=== PATIENT | male | born 1960 | race Caucasian/White ===

== ENCOUNTER 2019-08-12 12:25 | Inpatient (IN) | payer OTHER ==
[2019-08-12 14:28] VITALS: BMI 23.6
--- NOTE | 2019-08-12 15:46 | HP ---
CIWA Score Nausea/Vomitin Muscle Tremors: 3 Anxiety: 3 Agitation: 3 Paroxysmal Sweats: 1-Minimal Palms Moist Orientation: 0-Oriented Tacttile Disturbances: 1-Very Mild Itch/Numbness Auditory Disturbances: 0-None Visual Disturbances: 0-None Headache: 2-Mild CIWA-Ar Total Score: 15 - Admission Criteria OASAS Guidelines: Admission for Medically Managed Detox: Requires at least one of the followin. CIWA greater than 12 2. Seizures within the past 24 hours 3. Delirium tremens within the past 24 hours 4. Hallucinations within the past 24 hours 5. Acute intervention needed for co occurring medical disorder 6. Acute intervention needed for co occurring psychiatric disorder 7. Severe withdrawal that cannot be handled at a lower level of care (continued vomiting, continued diarrhea, abnormal vital signs) requiring intravenous medication and/or fluids 8. 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,on remission perforate appendicitis 2007 fx of right ankle in 1994 intestinal obstruction 2016 - Smoking History Smoking history: Current every day smoker Have you smoked in the past 12 months: Yes Aproximately how many cigarettes per day: 20 - Alcohol/Substance Use Hx Alcohol Use: Yes History of Substance Use: reports: None - Social History Usual Living Arrangement: Yes: With Child ADL: Support Services Occupation: unemployed Admission [facility] Chief Complaint: need help to stop drinking alcohol Allergies/Adverse Reactions: Allergies Allergy/AdvReac Type Severity Reaction Status Date / Time Penicillins Allergy Severe Difficulty Verified 08/12/19 14:19 Breathing History of Present Illness: this 59 years old male with alcohol dependence,seeking help,last detox 04/22 [facility] had seizure last syncope alcohol related multiple medical problem 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 Loss EENT: reports: Nose Congestion Respiratory: reports: No Symptoms reported Cardiac: reports: No Symptoms Reported GI: reports: Nausea, Poor Appetite, Abdominal cramping : reports: No Symptoms Reported Musculoskeletal: reports: Back Pain, Muscle Pain Integumentary: reports: Dryness Neuro: reports: Headache, Tremors Endocrine: reports: No Symptoms Reported Hematology: reports: No Symptoms Reported Psychiatric: reports: No Sypmtoms Reported, Judgement Intact, Mood/Affect Appropiate, Orientated x3, Agitated, Depressed, other (bipolar disoder, depression,ptsd) Patient History - Patient Medical History Hx Anemia: No Hx Asthma: No Hx Chronic Obstructive Pulmonary Disease (COPD): No Hx Cancer: No Hx Cardiac Disorders: No Hx Congestive Heart Failure: No Hx Hypertension: No Hx Hypercholesterolemia: No Hx Pacemaker: No HX Cerebrovascular Accident: No Hx Seizures: Yes (last 06/23) Hx Dementia: No Hx Diabetes: No Hx Gastrointestinal Disorders: Yes (intestinal obstruction sugery in 2015) Hx Liver Disease: No Hx Genitourinary Disorders: No Hx Sexually Transmitted Disorders: No Hx Renal Disease (ESRD): No Hx Thyroid Disease: No Hx Human Immunodeficiency Virus (HIV): No (last 06/23 negative) Hx Hepatitis C: No Hx Depression: Yes Hx Suicide Attempt: Yes (overdose in 2019) Hx Bipolar Disorder: Yes Hx Schizophrenia: No Other Medical History: no suicidal,no homicidal - Patient Surgical History Past Surgical History: Yes Hx Abdominal Surgery: Yes (intestinal obstruction in 2015) Hx Appendectomy: Yes (peforated in 2006) Hx Orthopedic Surgery: Yes (right ankle in 1994) Other Surgical History: 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 History Hx Alcohol Use: Yes Hx Substance Use: No Substance Use Type: Alcohol Hx Substance Use Treatment: Yes ([facility] in 04/23) - Substances abused Alcohol Substance route: Oral Frequency: Daily Amount used: 6pack beer,1.5 pint of vodka Age of first use: 9 Date of last use: 08/11/19 Admission Physical Exam [facility] - Vital Signs Vital Signs: Vital Signs - 24 hr 08/12/19 14:14 Temperature 97.7 F Pulse Rate 69 Respiratory 16 Rate Blood Pressure 153/91 - Physical General Appearance: Yes: Moderate Distress, Tremorous, Irritable, Sweating, Anxious HEENTM: Yes: Normal ENT Inspection, JEWEL, Pharynx Normal Respiratory: Yes: Lungs Clear, Normal Breath Sounds, No Respiratory Distress Neck: Yes: Within Normal Limits, Supple, Trachea in good position Breast: Yes: Breast Exam Deferred Cardiology: Yes: Within Normal Limits, Regular Rhythm, Regular Rate, S1, S2 Abdominal: Yes: Within Normal Limits, Normal Bowel Sounds, Non Tender, Flat, Soft, Surgical Scar Genitourinary: Yes: Other (wilm's tumor age 10 months) Musculoskeletal: Yes: Back pain, Muscle Pain Extremities: Yes: Tremors Neurological: Yes: x ray developer II-XII NML intact, Fully Oriented, Alert, Motor Strength 5/5 Integumentary: Yes: Dry, Petechiae - Diagnostic (1) Alcohol dependence with uncomplicated withdrawal Current Visit: Yes Status: Acute (2) Nicotine dependence Current Visit: Yes Status: Acute (3) Weight loss Current Visit: Yes Status: Acute (4) Wilms' tumor Current Visit: Yes Status: Acute (5) History of appendectomy Current Visit: Yes Status: Acute (6) Intestinal obstruction Current Visit: Yes Status: Acute (7) Bipolar disorder Current Visit: Yes Status: Acute (8) PTSD (post-traumatic stress disorder) Current Visit: Yes Status: Acute Cleared for Admission S - Detox or Rehab [facility] Level of Care: Medically Managed Detox Regimen/Protocol: Librium Breathalyzer - Breathalyzer Breathalyzer: 0 Urine Drug Screen - Test Device Lot number: [id number] Expiration date: 03/04/21 - Control Is test valid?: Yes - Results Drug screen NEGATIVE: Yes Inpatient Rehab Admission - Rehab Decision to Admit Inpatient rehab admission?: No
[2019-08-12] MEDS ORDERED: chlordiazePOXIDE HCL 25 MG CAPSULE PO PRN (16:09)
[2019-08-12] MEDS ORDERED: MAG HYDROX/AL HYDROX/SIMETH 30 ML UNIT-DOSE CUP PO PRN (16:09)
[2019-08-12] MEDS ORDERED: MAGNESIUM HYDROX 2400MG/30ML ORAL SUSPENSION 30 ML CUP PO PRN (16:09)
[2019-08-12] MEDS ORDERED: BISMUTH SUBSALICYLATE 524 MG/30 ML UD PO PRN (16:09)
[2019-08-12] MEDS ORDERED: MAGNESIUM CITRATE 300 ML BOTTLE PO PRN (16:09)
[2019-08-12] MEDS ORDERED: hydrOXYzine PAMOATE 25 MG CAPSULE (FP) PO PRN (16:09)
[2019-08-12] MEDS ORDERED: METHOCARBAMOL 500 MG TABLET PO PRN (16:09)
[2019-08-12] MEDS ORDERED: ACETAMINOPHEN 325 MG TABLET (FP) PO PRN ×2 (16:09)
[2019-08-12] MEDS ORDERED: MENTHOL/PHENOL 1 EACH UD MM PRN (16:09)
[2019-08-12] MEDS: NICOTINE 21 MG/24 HOURS TOPICAL PATCH TD SCH (17:40)
[2019-08-12] MEDS ORDERED: MELATONIN 5 MG TABLETS PO PRN (22:00)
[2019-08-12] MEDS: THIAMINE HCL 100 MG TABLET (FP) PO SCH (22:11)
[2019-08-12] MEDS: chlordiazePOXIDE HCL 25 MG CAPSULE PO SCH (22:11)
[2019-08-13] MEDS: IBUPROFEN 400 MG TABLET (FP) PO PRN ×2 (05:21→16:31)
[2019-08-13] MEDS: chlordiazePOXIDE HCL 25 MG CAPSULE PO SCH ×4 (05:21→22:25)
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
--- NOTE | 2019-08-13 09:14 | PN ---
S CIWA - CIWA Score Nausea/Vomitin-Mild Nausea/No Vomiting Muscle Tremors: 2 Anxiety: 2 Agitation: 1-Slight > Activity Paroxysmal Sweats: 2 Orientation: 0-Oriented Tacttile Disturbances: 2-Mild Itch/Numbness/Burn Auditory Disturbances: 0-None Visual Disturbances: 0-None Headache: 1-Very Mild CIWA-Ar Total Score: 11 [facility] Progress Note (SOAP) Subjective: Patient is 59 yo male with hx of alcohol dependence on librium protocol for detox c/o chills, sweats, interrupted sleep, chronic right left shoulder pain. Objective: 08/13/19 09:13 Vital Signs Temperature 98.1 F 08/13/19 05:00 Pulse Rate 68 08/13/19 05:00 Respiratory Rate 18 08/13/19 05:00 Blood Pressure 145/84 08/13/19 05:00 O2 Sat by Pulse Oximetry (%) labs pending Assessment: 08/13/19 09:13 Patient OAx3 no acute distress, + diaphoresis no adventitious breath sounds full ROM ambulatory withdrawal sx Plan: increase PO fluids continue detox ibuprofen prn for left shoulder pain continue to monitor
[2019-08-13] MEDS: NICOTINE 21 MG/24 HOURS TOPICAL PATCH TD SCH (10:00)
[2019-08-13] MEDS: PRENATAL VITAMINS W/ FOLIC ACID TABLET (FP) PO SCH (10:26)
[2019-08-13 10:46] LABS: HEMATOCRIT 41.4 % (35.4-49); HEMOGLOBIN 13.8 GM/dL (11.7-16.9); MCHC 33.4 g/dl (32.0-35.9); MEAN CELL VOLUME 89.8 fl (80-96); MEAN PLT VOLUME 8.6 fl (7.5-11.1); PLATELET COUNT 240 K/MM3 (134-434); RBC 4.61 M/mm3 (4.00-5.60); RDW 15.7 % (11.9-15.9); WHITE BLOOD COUNT 5.4 K/mm3 (4.0-10.0)
[2019-08-13 10:47] LABS: URINE APPEARANCE CLEAR; URINE BILIRUBIN NEGATIVE (NEGATIVE); URINE COLOR YELLOW; URINE GLUCOSE (UA) NEGATIVE (NEGATIVE); URINE KETONE NEGATIVE (NEGATIVE); URINE LEUK ESTERASE NEGATIVE (NEGATIVE); URINE NITRITE NEGATIVE (NEGATIVE); URINE PROTEIN NEGATIVE (NEGATIVE)
[2019-08-13] MEDS: SERTRALINE HCL 25 MG TABLET (FP) PO SCH (11:00)
[2019-08-13] MEDS: DIVALPROEX SODIUM 500 MG TABLET E.C. PO SCH ×2 (11:00→22:25)
[2019-08-13 11:11] LABS: ALBUMIN 3.3 g/dl (3.4-5.0); BILIRUBIN,TOTAL 0.7 mg/dL (0.2-1); CALCIUM 8.8 mg/dL (8.5-10.1); CREATININE 0.7 mg/dL (0.55-1.3); POTASSIUM 3.2 mmol/L (3.5-5.1); TOT PROT 6.7 g/dl (6.4-8.2)
--- NOTE | 2019-08-13 11:53 | EKG ---
Test Reason : Blood Pressure : / mmHG Vent. Rate : 055 BPM Atrial Rate : 055 BPM P-R Int : 136 ms QRS Dur : 090 ms QT Int : 468 ms P-R-T Axes : 063 058 070 degrees QTc Int : 447 ms SINUS BRADYCARDIA OTHERWISE NORMAL ECG NO PREVIOUS ECGS AVAILABLE Confirmed by SANDRA KAUFMAN, DEBBIE ([id number]) on 08/13/2019 11:53:16 AM Referred By: Confirmed By:DEBBIE FLORES MD
[2019-08-13] MEDS ORDERED: traZODone HCL 100 MG TABLET (FP) PO SCH (22:00)
[2019-08-13] MEDS: THIAMINE HCL 100 MG TABLET (FP) PO SCH (22:25)
[2019-08-14] MEDS: chlordiazePOXIDE HCL 25 MG CAPSULE PO SCH ×2 (05:58→10:46)
[2019-08-14 09:55] VITALS: TEMP 97.7
[2019-08-14] MEDS: SERTRALINE HCL 25 MG TABLET (FP) PO SCH (10:46)
[2019-08-14] MEDS: PRENATAL VITAMINS W/ FOLIC ACID TABLET (FP) PO SCH (10:46)
[2019-08-14] MEDS: DIVALPROEX SODIUM 500 MG TABLET E.C. PO SCH (10:46)
[2019-08-14] MEDS: NICOTINE 21 MG/24 HOURS TOPICAL PATCH TD SCH (10:49)
[2019-08-14] MEDS: NICOTINE POLACRILEX 2 MG GUM BUC PRN ×2 (10:49→14:55)
--- NOTE | 2019-08-14 11:42 | PN ---
S CIWA - CIWA Score Nausea/Vomitin-Mild Nausea/No Vomiting Muscle Tremors: 2 Anxiety: 2 Agitation: 0-Normal Activity Paroxysmal Sweats: 2 Orientation: 0-Oriented Tacttile Disturbances: 1-Very Mild Itch/Numbness Auditory Disturbances: 0-None Visual Disturbances: 0-None Headache: 2-Mild CIWA-Ar Total Score: 10 S Progress Note (SOAP) Subjective: c/o of chills, body aches, interrupted sleep Objective: 08/14/19 11:42 Vital Signs Temperature 97.7 F 08/14/19 09:55 Pulse Rate 100 H 08/14/19 09:55 Respiratory Rate 18 08/14/19 09:55 Blood Pressure 122/77 08/14/19 09:55 O2 Sat by Pulse Oximetry (%) Laboratory Last Values WBC 5.4 K/mm3 (4.0-10.0) 08/13/19 08:15 RBC 4.61 M/mm3 (4.00-5.60) 08/13/19 08:15 Hgb 13.8 GM/dL (11.7-16.9) 08/13/19 08:15 Hct 41.4 % (35.4-49) 08/13/19 08:15 MCV 89.8 fl (80-96) 08/13/19 08:15 MCH 30.0 pg (25.7-33.7) 08/13/19 08:15 MCHC 33.4 g/dl (32.0-35.9) 08/13/19 08:15 RDW 15.7 % (11.9-15.9) 08/13/19 08:15 Plt Count 240 K/MM3 (134-434) 08/13/19 08:15 MPV 8.6 fl (7.5-11.1) 08/13/19 08:15 Sodium 138 mmol/L (136-145) 08/13/19 08:15 Potassium 3.2 mmol/L (3.5-5.1) L 08/13/19 08:15 Chloride 101 mmol/L (98-107) 08/13/19 08:15 Carbon Dioxide 29 mmol/L (21-32) 08/13/19 08:15 Anion Gap 7 MMOL/L (8-16) L 08/13/19 08:15 BUN 12.0 mg/dL (7-18) 08/13/19 08:15 Creatinine 0.7 mg/dL (0.55-1.3) 08/13/19 08:15 Est GFR (CKD-EPI)AfAm 120.56 08/13/19 08:15 Est GFR (CKD-EPI)NonAf 104.02 08/13/19 08:15 Random Glucose 93 mg/dL (74-106) 08/13/19 08:15 Calcium 8.8 mg/dL (8.5-10.1) 08/13/19 08:15 Total Bilirubin 0.7 mg/dL (0.2-1) 08/13/19 08:15 AST 37 U/L (15-37) 08/13/19 08:15 ALT 35 U/L (13-61) 08/13/19 08:15 Alkaline Phosphatase 147 U/L (45-117) H 08/13/19 08:15 Total Protein 6.7 g/dl (6.4-8.2) 08/13/19 08:15 Albumin 3.3 g/dl (3.4-5.0) L 08/13/19 08:15 Urine Color Yellow 08/13/19 08:15 Urine Appearance Clear 08/13/19 08:15 Urine pH 8.0 (5.0-8.0) 08/13/19 08:15 Ur Specific Nabb 1.016 (1.010-1.035) 08/13/19 08:15 Urine Protein Negative (NEGATIVE) 08/13/19 08:15 Urine Glucose (UA) Negative (NEGATIVE) 08/13/19 08:15 Urine Ketones Negative (NEGATIVE) 08/13/19 08:15 Urine Blood Negative (NEGATIVE) 08/13/19 08:15 Urine Nitrite Negative (NEGATIVE) 08/13/19 08:15 Urine Bilirubin Negative (NEGATIVE) 08/13/19 08:15 Urine Urobilinogen 1.0 mg/dL (0.2-1.0) 08/13/19 08:15 Ur Leukocyte Esterase Negative (NEGATIVE) 08/13/19 08:15 Valproic Acid < 3.0 ug/mL (50-100) L 08/13/19 11:20 RPR Titer Nonreactive (NONREACTIVE) 08/13/19 08:15 Assessment: 08/14/19 11:42 Patient OAx3 no acute distress no adventitious breath sounds full ROM ambulatory withdrawal sx Plan: increase fluids continue detox continue to monitor
[2019-08-14] MEDS: IBUPROFEN 400 MG TABLET (FP) PO PRN (13:25)
[2019-08-14 15:01] VITALS: BP 100/77; PULSE 77
--- NOTE | 2019-08-14 15:55 | PN ---
[facility] Progress Note Note: pt came up to RN station wanting to leave. Pt was asked why and risk of leaving but he insisted he wants to leave and refused to answer any questions or acknowledge risk of relapse, seizure, DT, OD and loss. Pt signed out AMA.
--- NOTE | 2019-08-14 15:57 | DS ---
[facility] Detox Discharge Summary Admission Date: 08/12/19 - History Present History: Alcohol Dependence - Physical Exam Results Vital Signs: Vital Signs Temperature 97.7 F 08/14/19 15:00 Pulse Rate 77 08/14/19 15:00 Respiratory Rate 18 08/14/19 15:00 Blood Pressure 100/77 08/14/19 15:00 O2 Sat by Pulse Oximetry (%) Pertinent Admission Physical Exam Findings: Vital Signs Temperature 97.7 F 08/14/19 15:00 Pulse Rate 77 08/14/19 15:00 Respiratory Rate 18 08/14/19 15:00 Blood Pressure 100/77 08/14/19 15:00 O2 Sat by Pulse Oximetry (%) Laboratory Tests 08/13/19 08/13/19 08/13/19 08:15 08:15 08:15 WBC 5.4 RBC 4.61 Hgb 13.8 Hct 41.4 MCV 89.8 MCH 30.0 MCHC 33.4 RDW 15.7 Plt Count 240 MPV 8.6 Sodium 138 Potassium 3.2 L Chloride 101 Carbon Dioxide 29 Anion Gap 7 L BUN 12.0 Creatinine 0.7 Est GFR (CKD-EPI)AfAm 120.56 Est GFR (CKD-EPI)NonAf 104.02 Random Glucose 93 Calcium 8.8 Total Bilirubin 0.7 AST 37 ALT 35 Alkaline Phosphatase 147 H Total Protein 6.7 Albumin 3.3 L Urine Color Urine Appearance Urine pH Ur Specific [place] Urine Protein Urine Glucose (UA) Urine Ketones Urine Blood Urine Nitrite Urine Bilirubin Urine Urobilinogen Ur Leukocyte Esterase Valproic Acid RPR Titer Nonreactive 08/13/19 08/13/19 08:15 11:20 WBC RBC Hgb Hct MCV MCH MCHC RDW Plt Count MPV Sodium Potassium Chloride Carbon Dioxide Anion Gap BUN Creatinine Est GFR (CKD-EPI)AfAm Est GFR (CKD-EPI)NonAf Random Glucose Calcium Total Bilirubin AST ALT Alkaline Phosphatase Total Protein Albumin Urine Color Yellow Urine Appearance Clear Urine pH 8.0 Ur Specific [place] 1.016 Urine Protein Negative Urine Glucose (UA) Negative Urine Ketones Negative Urine Blood Negative Urine Nitrite Negative Urine Bilirubin Negative Urine Urobilinogen 1.0 Ur Leukocyte Esterase Negative Valproic Acid < 3.0 L RPR Titer aaox3 ambulating no acute distress - Treatment Patient has Accepted a Rehab Referral to: referral provided - Medication Discharge Medications: Ambulatory Orders Divalproex [Depakote -] 500 mg PO BID 08/12/19 Lamotrigine [Lamictal -] 100 mg PO DAILY 08/12/19 Sertraline HCl 25 mg PO DAILY 08/12/19 traZODone HCL [Trazodone HCl] 200 mg PO HS 08/12/19 - Diagnosis (1) Alcohol dependence with uncomplicated withdrawal Current Visit: Yes Status: Acute (2) Alcohol-induced mood disorder Current Visit: Yes Status: Acute (3) Alcohol-induced sleep disorder Current Visit: Yes Status: Acute (4) Weight loss Current Visit: Yes Status: Acute (5) Bipolar disorder Current Visit: Yes Status: Chronic (6) Nicotine dependence Current Visit: Yes Status: Chronic (7) PTSD (post-traumatic stress disorder) Current Visit: Yes Status: Chronic (8) Seizure disorder Current Visit: Yes Status: Chronic (9) History of appendectomy Current Visit: Yes Status: Resolved (10) Intestinal obstruction Current Visit: Yes Status: Resolved (11) Wilms' tumor Current Visit: Yes Status: Resolved - AMA Did Patient Leave Against Medical Advice: Yes
[2019-08-15] MEDS ORDERED: chlordiazePOXIDE HCL 10 MG CAPSULE PO PRN
[2019-08-15] MEDS ORDERED: chlordiazePOXIDE HCL 10 MG CAPSULE PO SCH (05:00)
[2019-08-16] MEDS ORDERED: chlordiazePOXIDE HCL 10 MG CAPSULE PO SCH (05:00)
[2019-08-17] MEDS ORDERED: chlordiazePOXIDE HCL 10 MG CAPSULE PO ONE (05:00)
== END 2019-08-14 16:13 | disposition left against medical advice (07) | DRG 770 ==
LOC: YASAS 12:25 → Y6N 16:54
PROVIDERS: ADMIT Allergy & Immunology; ATTEND Allergy & Immunology
PROC: HZ2ZZZZ Detoxification Services for Substance Abuse Treatment (ICD-10-PCS; principal; 2019-08-12)
DX: F10.230 Alcohol dependence with withdrawal, uncomplicated (principal); F10.280 Alcohol dependence with alcohol-induced anxiety disorder; F10.282 Alcohol dependence with alcohol-induced sleep disorder; F17.210 Nicotine dependence, cigarettes, uncomplicated; F31.9 Bipolar disorder, unspecified; F43.10 Post-traumatic stress disorder, unspecified; R63.4 Abnormal weight loss; G40.909 Epilepsy, unspecified, not intractable, without status epilepticus; Z88.0 Allergy status to penicillin; Z85.528 Personal history of other malignant neoplasm of kidney; Z92.3 Personal history of irradiation; Z56.0 Unemployment, unspecified; Z91.5 Personal history of self-harm
CPT/HCPCS: 36415; 80053; 80164; 81003; 85027; 86593; 93005; 93010